=== PATIENT | male | born 2005 | race Caucasian/White ===

== ENCOUNTER 2024-02-24 01:19 | Emergency (ER) | payer OTHER ==
[2024-02-24 02:06] LABS: #Basophils 0.1 thou/uL (0.0-0.2); #Eosinphils 0.3 thou/uL (0.0-0.7); #Lymphocytes 2.8 thou/uL (1.20-3.40); #Monocytes 0.5 thou/uL (0.11-0.59); #Neutrophils 4.5 thou/uL (1.40-6.50); %Basophils 0.7 % (0.0-1.0); %Eosinophils 3.9 % (0.0-10.0); %Lymphocytes 34.3 % (28.0-48.0); %Monocytes 6.4 % (0.0-4.0); %Neutrophils 54.6 % (31.0-61.0); Hematocrit 44.3 % (42.0-52.0); Hemoglobin 14.3 g/dL (14.0-18.0); Mean Corpuscular HGB CONC 32.3 g/dL (32.0-36.0); Mean Corpuscular Hemoglobin 31.2 pg (25.0-35.0); Mean Corpuscular Volume 96.8 fl (78.0-98.0); Mean Platelet Volume 6.8 fL (7.4-10.4); Platelet Count 200 10x3/uL (130-400); RBC Distribution Width 11.2 % (11.5-14.5); Red Blood Cell (RBC) Count 4.58 mill/uL (4.00-5.20); White Blood Cell (WBC) Count 8.2 10x3/uL (4.8-10.8)
[2024-02-24] MEDS ORDERED: Ketorolac Tromethamine 30 MG (1 mL) VIAL ONE (02:12)
[2024-02-24 02:16] LABS: Bilirubin Negative (Negative); Blood, Urine Negative (Negative); Clarity Clear (Clear); Glucose, Urine (Dipstick) Negative (Negative); Ketone, Urine Negative (Negative); Leukocyte Negative (Negative); Nitrite Negative (Negative); Protein, Urine (Dipstick) Negative (Neg-Trace); RBC/HPF 0-3 HPF (0-3); Specific Gravity, Urine 1.015 (1.005-1.030); Urobilinogen 0.2 mg/dL (Less than 2)
[2024-02-24 02:17] LABS: Bacteria/HPF Rare-Few HPF (None Seen); CAUTI Indications for Culture Pelvic or flank pain; Squamous Epithelial 0-3 HPF (0-3); WBC/HPF 0-3 HPF (0-3)
[2024-02-24 02:18] LABS: Urine Culture Reflex No No
[2024-02-24 02:24] LABS: ALT (SGPT) 20 U/L (8-55); AST (SGOT) 22 U/L (5-34); Albumin 4.2 g/dL (3.5-5.0); Alkaline Phosphatase 87 U/L (50-130); Anion Gap 13 mmol/L (10-20); BUN (Urea Nitrogen) 16 mg/dL (8.9-20.6); Bilirubin, Total 0.4 mg/dL (0.2-1.2); Calc. Creatinine Clearance 0 mL/min (70-130); Calcium 9.4 mg/dL (7.8-10.44); Carbon Dioxide 24 mmol/L (22-29); Chloride 103 mmol/L (98-107); Estimated GFR 92; Globulin 2.5 g/dL (2.4-3.5); Glucose 99 mg/dL (70-105); Lipase 23 U/L (8-78); Potassium 4.2 mmol/L (3.5-5.1); Protein, Total 6.7 g/dL (6.0-8.3); Sodium 136 mmol/L (136-145)
[2024-02-24 02:29] LABS: Troponin I 0.018 ng/mL (< 0.028)
[2024-02-24] MEDS ORDERED: Lactated Ringer's 1,000 ML ONE (02:52)
[2024-02-24] MEDS ORDERED: Lidocaine Viscous Sol 2% 15 ml UD Cup ONE (02:52)
[2024-02-24] MEDS ORDERED: Mag-Al 1200 mg/1200 mg/30 ML UDCUP ONE (02:52)
[2024-02-24] MEDS ORDERED: Iopamidol 370 76% 100 ML VIAL ONE (09:00)
== END 2024-02-24 03:27 | disposition home or self-care (01) ==
LOC: MADERS 01:19
DX: R10.11 Right upper quadrant pain (principal); R07.81 Pleurodynia
CPT/HCPCS: 71046; 74177; 80053; 81001; 83690; 84484; 85025; 93005; 94760; 96374; J1885; J7120; Q9967